=== PATIENT | female | born 1990 | race Two or more races ===

== ENCOUNTER 2020-05-16 07:15 | Inpatient (IN) | payer OTHER ==
[~2020-05-16] VITALS: Ht 162.6 cm; Wt 55.3 kg
[2020-05-19] MEDS ORDERED: KETO10TA2 PO (07:39)
[2020-05-19] MEDS ORDERED: CODE1TAB37 PO (07:39)
== END 2020-05-19 11:33 | disposition home or self-care (01) | DRG 743 ==
LOC: OB/GYN 05-17 07:15 → O/R 05-17 07:25 → OB/GYN 05-17 07:25
PROVIDERS: ADMIT Obstetrics & Gynecology Maternal & Fetal Medicine; ATTEND Obstetrics & Gynecology Maternal & Fetal Medicine
PROC: 0UB20ZZ Excision of Bilateral Ovaries, Open Approach (ICD-10-PCS; principal; 2020-05-17 09:45)
DX: D27.0 Benign neoplasm of right ovary (principal); D27.1 Benign neoplasm of left ovary; Z20.822 Contact with and (suspected) exposure to COVID-19

== ENCOUNTER 2021-01-11 12:17 | Emergency (ER) | payer OTHER ==
[~2021-01-11] VITALS: Ht 160 cm; Wt 59.0 kg
[~2021-01-11 12:17] MED LIST: CODE1TAB37 PO; KETO10TA2 PO
[2021-01-11] MEDS ORDERED: PRENA1 PEARL S1 EACH (12:36)
[2021-01-11] MEDS ORDERED: FOLIC ACID20 MG (12:36)
== END 2021-01-11 15:31 | disposition home or self-care (01) ==
LOC: ER 12:17
DX: B34.9 Viral infection, unspecified (principal); Z20.822 Contact with and (suspected) exposure to COVID-19

== ENCOUNTER 2021-03-15 09:47 | Outpatient (CLI) | payer OTHER ==
[~2021-03-15 09:47] MED LIST changes: +FOLIC ACID20 MG; +PRENA1 PEARL S1 EACH
== END 2021-03-15 11:42 | disposition home or self-care (01) ==
LOC: NST 09:47
PROVIDERS: ATTEND Obstetrics & Gynecology Maternal & Fetal Medicine
DX: Z34.82 Encounter for supervision of other normal pregnancy, second trimester (principal)

== ENCOUNTER 2021-03-28 10:05 | Outpatient (CLI) | payer OTHER | END 2021-03-28 10:35 | disposition home or self-care (01) | LOC: NST 10:05 | PROVIDERS: ATTEND Obstetrics & Gynecology Maternal & Fetal Medicine | DX: Z34.82 Encounter for supervision of other normal pregnancy, second trimester (principal) ==

== ENCOUNTER 2021-04-27 15:41 | Outpatient (CLI) | payer OTHER | END 2021-04-27 16:21 | disposition home or self-care (01) | LOC: NST 15:41 | PROVIDERS: ATTEND Obstetrics & Gynecology Maternal & Fetal Medicine | DX: Z34.83 Encounter for supervision of other normal pregnancy, third trimester (principal) ==

== ENCOUNTER 2021-06-04 02:34 | Inpatient (IN) | payer OTHER ==
[~2021-06-04] VITALS: Ht 162.6 cm; Wt 73.5 kg
[2021-06-04] MEDS ORDERED: ASPIRIN81 MG PO (03:20)
== END 2021-06-06 12:10 | disposition home or self-care (01) | DRG 807 ==
LOC: LDR 02:34 → SURG-SUITE 02:34
PROVIDERS: ADMIT Obstetrics & Gynecology Maternal & Fetal Medicine; ATTEND Obstetrics & Gynecology Maternal & Fetal Medicine
PROC: 10E0XZZ Delivery of Products of Conception, External Approach (ICD-10-PCS; principal; 2021-06-04)
PROC: 0HQ9XZZ Repair Perineum Skin, External Approach (ICD-10-PCS; 2021-06-04)
PROC: 4A1HXCZ Monitoring of Products of Conception, Cardiac Rate, External Approach (ICD-10-PCS; 2021-06-04)
DX: O70.0 First degree perineal laceration during delivery (principal); Z37.0 Single live birth; Z3A.38 38 weeks gestation of pregnancy; Z20.822 Contact with and (suspected) exposure to COVID-19

== ENCOUNTER 2022-03-04 22:19 | Inpatient (IN) | payer OTHER ==
[~2022-03-04] VITALS: Ht 160 cm; Wt 56.7 kg
[~2022-03-04 22:19] MED LIST changes: +ASPIRIN81 MG PO
--- NOTE | 2022-03-04 23:13 | NUR ---
PACIENTE ALERTA Y ORIENTADA X3, REFIERE QUE FUE AL [facility] DONDE LA DIAGNOSTICARON CON PIELONEFRITIS. PACIENTE REFIERE TENER DOLOR DE FLANCO. SE MONITOREAN VS SE OBTIENE 102.0 DE TEMPERATURA Y PULSO EN 145 (PACIENTE REFIERE NO TENER DOLOR DE PECHO). SE REALIZA EKG Y SE PRESENTA A DR. GARIBAY. SE UBICA PACIENTE EN K8 CON MONITOR CARDIACO Y OXIMETRIA DE PULSO. SE CANALIZA Y BRIANA MUESTRAS DE MARIE MEDIANTE MEDIDAS ASEPTICAS.
--- NOTE | 2022-03-05 01:17 | NUR ---
PTE EVALUADA POR EL DR SPARKS QUIEN ORDENA EL TX. MR I MT ORIENTA SOBRE EL TX ORDENADO, LO CUAL REFIERE ENTENDER, REALIZA PRUEBAS DE LABORATORIO Y ADMINISTRA MEDICAMENTOS AMANDA ORDEN MEDICA Y SIGUENDO MEDIDAS ASEPTICAS. PENDIENTE A REALIZAR SONOGRAMA PELVICO Y RENAL. SE MANTIENE BAJO OBSERVACION.
[2022-03-08] MEDS ORDERED: INTESTINEX680 M1 PO (15:22)
[2022-03-08] MEDS ORDERED: INTEGRA PLUS C1 EACH PO (15:22)
[2022-03-08] MEDS ORDERED: AMOX-CLAV 875-1 EACH PO (15:22)
[2022-03-08] MEDS ORDERED: VITAMIN B-121000 MC2 SL (15:23)
[2022-03-08] MEDS ORDERED: ECOTRIN81 MG PO (15:24)
== END 2022-03-08 17:16 | disposition home or self-care (01) | DRG 690 ==
LOC: ER 22:19 → SURH 03-05 09:12 → SEC-K 03-05 09:12 → SURH 03-05 09:51
PROVIDERS: ADMIT Internal Medicine; ATTEND Internal Medicine
PROC: B54MZZZ Ultrasonography of Right Upper Extremity Veins (ICD-10-PCS; principal; 2022-03-07)
DX: N10 Acute pyelonephritis (principal); Q60.0 Renal agenesis, unilateral; D68.62 Lupus anticoagulant syndrome; N39.0 Urinary tract infection, site not specified

== ENCOUNTER 2022-05-06 20:33 | Emergency (ER) | payer OTHER ==
[~2022-05-06] VITALS: Ht 160 cm; Wt 55.8 kg
[~2022-05-06 20:33] MED LIST changes: +AMOX-CLAV 875-1 EACH PO; +ECOTRIN81 MG PO; +INTEGRA PLUS C1 EACH PO; +INTESTINEX680 M1 PO; +VITAMIN B-121000 MC2 SL
[2022-05-06] MEDS ORDERED: ONDANSETRON ODT8 MG PO (22:58)
[2022-05-06] MEDS ORDERED: PEPCID AC20 MG PO (22:58)
== END 2022-05-06 23:15 | disposition home or self-care (01) ==
LOC: ER 20:33
DX: K52.9 Noninfective gastroenteritis and colitis, unspecified (principal)

== ENCOUNTER → 2023-03-28 | Outpatient (CLI) | payer OTHER ==
[~2023-03-28] MED LIST changes: +ONDANSETRON ODT8 MG PO; +PEPCID AC20 MG PO
== END | disposition home or self-care (01) ==
LOC: NST 10:36
PROVIDERS: ATTEND Obstetrics & Gynecology Gynecology
DX: Z34.83 Encounter for supervision of other normal pregnancy, third trimester (principal)